=== PATIENT | female | born 1950 ===

== ENCOUNTER 2018-04-16 09:22 | Day surgery (SDC) | payer MEDICARE ==
[2018-04-16] MEDS ORDERED: Lactated Ringer's 500 ML IV ONE (09:42)
[2018-04-16] MEDS ORDERED: Propofol 10 mg/ml Inj (20 ML) ONE (12:30)
[2018-04-16 13:05] VITALS: TEMP 97.3
[2018-04-16 13:18] VITALS: BP 124/73; PULSE 50; RESP 17; O2SAT 99
== END 2018-04-16 13:21 | disposition home or self-care (01) ==
LOC: H.ENDO 09:22
PROVIDERS: ATTEND Internal Medicine Gastroenterology
DX: Z12.11 Encounter for screening for malignant neoplasm of colon (principal); E78.5 Hyperlipidemia, unspecified; I10 Essential (primary) hypertension; D12.2 Benign neoplasm of ascending colon; D17.5 Benign lipomatous neoplasm of intra-abdominal organs; K57.30 Diverticulosis of large intestine without perforation or abscess without bleeding
CPT/HCPCS: 45380; 82948; 88305; J2001; J2704; J7120